=== PATIENT | female | born 1995 | race Hispanic/Latino ===

== ENCOUNTER 2024-07-19 04:40 | Emergency (ER) | payer OTHER ==
[~2024-07-19] VITALS: Ht 154.9 cm; Wt 81.6 kg
[2024-07-19 04:48] VITALS: PULSE 80; RESP 20; TEMP 98.3; O2SAT 100
== END 2024-07-19 05:10 | disposition home or self-care (01) ==
LOC: ER 04:50
DX: H92.02 Otalgia, left ear (principal); J02.9 Acute pharyngitis, unspecified; R05.9 Cough, unspecified
CPT/HCPCS: 99282